=== PATIENT | male | born 1980 | race Caucasian/White ===

== ENCOUNTER 2020-03-30 07:30 | Outpatient (CLI) | payer OTHER, SELFPAY ==
[2020-03-30 08:16] LABS: Hematocrit 49.2 % (42.0-52.0); Hemoglobin 16.3 g/dL (14.0-18.0); Mean Corpuscular HGB Conc 33.1 g/dl (32-36); Mean Corpuscular Hemoglobin 30.3 pg (26-34); Mean Corpuscular Volume 91.4 fl (80-100); Mean Platelet Volume 9.9 fl (7.4-10.4); Platelet Count Result 171 k/mm3 (150-375); Red Blood Count 5.38 M/mm3 (4.6-6.20); Red Cell Distribution Width 12.8 % (11.5-14.5); White Blood Count 7.3 K/mm3 (4.5-10.0)
[2020-03-30 08:29] LABS: Alanine Aminotransferase 27 U/L (4-50); Albumin Level 4.1 g/dL (3.5-5.1); Alkaline Phosphatase 53 U/L (38-126); Aspartate Amino Transferase 21 U/L (17-59); Blood Urea Nitrogen 20 mg/dL (9-20); Calcium 8.7 mg/dL (8.4-10.2); Carbon Dioxide 23 mmol/L (22-30); Chloride 106 mmol/L (98-107); Estimated Glomerular Filt Rate > 60; Glucose 109 mg/dL (75-110); Potassium 4.1 mmol/L (3.4-5.0); Sodium 136 mmol/L (137-145)
[2020-04-01 12:08] LABS: Prostate Specific Antigen 0.5 ng/mL (< OR = 4.0)
[2020-04-03 12:33] LABS: Testosterone Free 118.3 pg/mL (35.0-155.0); Testosterone Total 684 ng/dL (250-1100)
== END 2020-03-30 07:31 | disposition home or self-care (01) ==
DX: E29.1 Testicular hypofunction (principal)
CPT/HCPCS: 36415; 80053; 84153; 84402; 84403; 85027; G0103

== ENCOUNTER 2020-10-05 07:27 | Outpatient (CLI) | payer OTHER, SELFPAY ==
[2020-10-05 07:46] LABS: Hematocrit 48.9 % (42.0-52.0); Hemoglobin 16.7 g/dL (14.0-18.0); Mean Corpuscular HGB Conc 34.2 g/dl (32-36); Mean Corpuscular Hemoglobin 30.8 pg (26-34); Mean Corpuscular Volume 90.1 fl (80-100); Platelet Count Result 179 k/mm3 (150-375); Red Blood Count 5.43 M/mm3 (4.6-6.20); Red Cell Distribution Width 13.2 % (11.5-14.5); White Blood Count 7.3 K/mm3 (4.5-10.0)
[2020-10-05 08:02] LABS: Alanine Aminotransferase 45 U/L (4-50); Alkaline Phosphatase 54 U/L (38-126); Anion Gap 3 mmol/L (8-16); Aspartate Amino Transferase 34 U/L (17-59); Bilirubin,Total 1.3 mg/dL (0.2-1.3); Blood Urea Nitrogen 19 mg/dL (9-20); Calcium 9.1 mg/dL (8.4-10.2); Carbon Dioxide 32 mmol/L (22-30); Chloride 104 mmol/L (98-107); Cholesterol 199 mg/dL (0-200); Estimated Glomerular Filt Rate > 60; Glucose 105 mg/dL (75-110); HDL Direct 38 mg/dL; Potassium 4.5 mmol/L (3.4-5.0); Sodium 139 mmol/L (137-145); Triglycerides 180 mg/dL (<150)
[2020-10-05 08:13] LABS: LDL Cholesterol Direct 138 mg/dL
[2020-10-05 08:32] LABS: Prostate Specific Antigen 0.5 ng/mL (< OR = 4.0)
[2020-10-08 12:42] LABS: Testosterone Free 68.8 pg/mL (35.0-155.0); Testosterone Total 588 ng/dL (250-1100)
== END 2020-10-05 07:28 | disposition home or self-care (01) ==
DX: Z00.00 Encounter for general adult medical examination without abnormal findings (principal)
CPT/HCPCS: 36415; 80053; 80061; 84153; 84402; 84403; 85027

== ENCOUNTER 2021-03-30 07:58 | Outpatient (CLI) | payer OTHER, SELFPAY ==
[2021-03-30 09:01] LABS: Alanine Aminotransferase 28 U/L (4-50); Albumin Level 4.2 g/dL (3.5-5.1); Alkaline Phosphatase 57 U/L (38-126); Anion Gap 8 mmol/L (8-16); Aspartate Amino Transferase 26 U/L (17-59); Bilirubin,Total 1.4 mg/dL (0.2-1.3); Blood Urea Nitrogen 19 mg/dL (9-20); Calcium 9.3 mg/dL (8.4-10.2); Carbon Dioxide 26 mmol/L (22-30); Chloride 103 mmol/L (98-107); Cholesterol 191 mg/dL (0-200); Estimated Glomerular Filt Rate > 60; Glucose 115 mg/dL (75-110); HDL Direct 39 mg/dL; Potassium 4.6 mmol/L (3.4-5.0); Sodium 137 mmol/L (137-145); Triglycerides 240 mg/dL (<150)
[2021-03-30 09:11] LABS: LDL Cholesterol Direct 97 mg/dL
[2021-04-03 22:40] LABS: Testosterone Free 19.6 pg/mL (35.0-155.0); Testosterone Total 188 ng/dL (250-1100)
== END 2021-03-30 07:59 | disposition home or self-care (01) ==
DX: E78.2 Mixed hyperlipidemia (principal)
CPT/HCPCS: 36415; 80053; 80061; 84402; 84403

== ENCOUNTER 2021-10-03 07:07 | Outpatient (CLI) | payer OTHER, SELFPAY ==
[2021-10-03 07:36] LABS: Hematocrit 47.4 % (42.0-52.0); Hemoglobin 15.6 g/dL (14.0-18.0); Mean Corpuscular HGB Conc 32.9 g/dl (32-36); Mean Corpuscular Hemoglobin 30.6 pg (26-34); Mean Corpuscular Volume 93.1 fl (80-100); Platelet Count Result 148 k/mm3 (150-375); Red Blood Count 5.09 M/mm3 (4.6-6.20); Red Cell Distribution Width 13.2 % (11.5-14.5); White Blood Count 4.7 K/mm3 (4.5-10.0)
[2021-10-03 07:59] LABS: LDL Cholesterol Direct 110 mg/dL
[2021-10-03 08:03] LABS: Alanine Aminotransferase 27 U/L (4-50); Albumin Level 4.1 g/dL (3.5-5.1); Alkaline Phosphatase 46 U/L (38-126); Anion Gap 7 mmol/L (8-16); Aspartate Amino Transferase 24 U/L (17-59); Blood Urea Nitrogen 12 mg/dL (9-20); Calcium 8.7 mg/dL (8.4-10.2); Carbon Dioxide 27 mmol/L (22-30); Chloride 105 mmol/L (98-107); Cholesterol 163 mg/dL (0-200); Estimated Glomerular Filt Rate > 60; Glucose 101 mg/dL (65-110); HDL Direct 30 mg/dL; Potassium 4.5 mmol/L (3.4-5.0); Sodium 139 mmol/L (137-145); Triglycerides 146 mg/dL (<150)
[2021-10-10 03:17] LABS: Testosterone Free 136.3 pg/mL (35.0-155.0); Testosterone Total 915 ng/dL (250-1100)
== END 2021-10-03 07:08 | disposition home or self-care (01) ==
LOC: ANHLAB 07:12
DX: Z00.00 Encounter for general adult medical examination without abnormal findings (principal); E29.1 Testicular hypofunction
CPT/HCPCS: 36415; 80053; 80061; 84402; 84403; 85027

== ENCOUNTER 2022-05-03 11:31 | Emergency (ER) | payer OTHER, SELFPAY ==
[2022-05-03] VITALS (21 sets, daily range): BP systolic 129–147; BP diastolic 70–81; PULSE 54–71; RESP 11–22; O2SAT 96–100
--- NOTE | ~2022-05-03 | XR_ITS ---
XR chest 2V DATE: 05/03/2022 12:25 INDICATION: Chest pain TECHNIQUE: PA and lateral views COMPARISON: None FINDINGS: Normal heart size. No hilar or mediastinal enlargement. No pulmonary infiltrate or consolid ation, pleural effusion or pulmonary vascular congestion or pneumothorax. Mild levoscoliosis of the upper thoracic spine. IMPRESSION: No active cardiopulmonary disease Reviewed, dictated and finalized at location B.
--- NOTE | 2022-05-03 11:34 | ECG_ITS ---
Measurements Intervals [place] Rate: 62 P: 21 MO: 166 QRS: 41 QRSD: 98 T: 25 QT: 370 QTc: 379 Interpretive Statements SINUS RHYTHM NORMAL EKG NO PREVIOUS ECG AVAILABLE FOR COMPARISON Electronically Signed On 05-03-2022 18:31:33 CDT by Gertrudis Gonzalez M.D.
[2022-05-03 11:55] LABS: Basophils Absolute Auto 0.1 K/mm3 (0.0-0.1); Basophils Percent Auto 0.6 % (0.2-1.2); Eosinophils Absolute Auto 0.1 K/mm3 (0-0.3); Eosinophils Percent Auto 1.3 % (0-4.4); Hematocrit 50.7 % (42.0-52.0); Hemoglobin 16.5 g/dL (14.0-18.0); Immature Granulocyte Absolute 0.02 K/mm3 (0.00-0.031); Immature Granulocyte Percent A 0.3 % (0-0.5); Lymphocytes Absolute Auto 2.47 K/mm3 (0.9-3.2); Lymphocytes Percent Auto 31.1 % (18.3-44.2); Mean Corpuscular HGB Conc 32.5 g/dl (32-36); Mean Corpuscular Hemoglobin 29.8 pg (26-34); Mean Corpuscular Volume 91.7 fl (80-100); Mean Platelet Volume 10.3 fl (7.4-10.4); Monocytes Absolute Auto 0.7 K/mm3 (0.1-0.6); Monocytes Percent Auto 9.3 % (2.6-8.5); Neutrophils Absolute Auto 4.6 K/mm3 (1.3-6.7); Neutrophils Percent Auto 57.4 % (45.5-73.1); Platelet Count Result 170 k/mm3 (150-375); Red Blood Count 5.53 M/mm3 (4.6-6.20); Red Cell Distribution Width 13.5 % (11.5-14.5); White Blood Count 7.9 K/mm3 (4.5-10.0)
[2022-05-03 12:11] LABS: Alanine Aminotransferase 23 U/L (6-50); Albumin Level 4.5 g/dL (3.5-5.1); Alkaline Phosphatase 49 U/L (38-126); Anion Gap 9 mmol/L (8-16); Aspartate Amino Transferase 30 U/L (17-59); Bilirubin,Total 1.7 mg/dL (0.2-1.3); Blood Urea Nitrogen 16 mg/dL (9-20); Calcium 9.6 mg/dL (8.4-10.2); Carbon Dioxide 26 mmol/L (22-30); Chloride 101 mmol/L (98-107); Estimated Glomerular Filt Rate > 60; Glucose 88 mg/dL (65-110); Lipase 108 U/L (23-300); Potassium 4.5 mmol/L (3.4-5.0); Sodium 136 mmol/L (137-145)
[2022-05-03 12:19] LABS: Troponin I 0.013 ng/mL (0.000-0.034)
[2022-05-03 12:42] LABS: INR 1.1; Partial Thromboplastin Time 26.3 SECONDS (22.3-36.8); Prothrombin Time 13.4 Seconds (11.1-14.7)
[2022-05-03] MEDS: ONDANSETRON INJ 4 MG/2 ML VIAL 8 MG IV PUSH (13:32)
[2022-05-03] MEDS: FAMOTIDINE 20 MG/2 ML VIAL IV PUSH (13:33)
[2022-05-03] MEDS: PANTOPRAZOLE SODIUM IV 40 MG VIAL IV PUSH (13:33)
[2022-05-03 15:35] LABS: Troponin I < 0.012 ng/mL (0.000-0.034)
--- NOTE | 2022-05-03 17:25 | ED.GENADULT ---
HPI - General Adult General Chief complaint: Chest Pain Stated complaint: chest pain, throwing up blood Time Seen by Provider: 05/03/22 12:08 History of Present Illness HPI narrative: This is a 41-year-old male presenting the ED after an episode of chest pain and vomiting blood. Patient was at a bar last night had several alcoholic beverages. He was driving home he felt queasy and then have an episode of bright red hematemesis. Since then he has not had any further episodes. During the vomiting patient describing a heavy chest pain over the center of his chest that is nonradiating, 2 out 10 intensity and sudden onset. He is relating this when he has heartburn past. They were no exacerbating or alleviating factors. Patient has noted that he has had loose bowel movements for last day but no red blood in the bowel movements or symptoms of melena. Patient had a bowel movement earlier today without difficulty. Patient uses 750 mg of Aleve every morning. He smokes cigarettes and drinks daily. Related Data Home Medications Medication Instructions Recorded Confirmed eluxadoline 100 mg tablet (Viberzi) mg 05/03/22 05/03/22 hydrocodone 10 mg-acetaminophen tablet 05/03/22 325 mg tablet montelukast 10 mg tablet mg 05/03/22 trazodone 50 mg tablet mg 05/03/22 Allergies Allergy/AdvReac Type Severity Reaction Status Date / Time No Known Allergies Allergy Verified 05/03/22 11:49 Review of Systems Review of Systems: CONSTITUTIONAL: Denies night sweats. EYES: No eye pain ENT: Denies rhinorrhea CARDIOVASCULAR: Denies palpitations RESPIRATORY: Denies hemoptysis GASTROINTESTINAL: Admits hematemesis GENITOURINARY: Denies hematuria. SKIN: Denies rash MUSCULOSKELETAL: Denies myalgia. NEUROLOGIC: Denies weakness. PSYCHIATRIC: Denies delusions PMFSH Past Medical History Medical History Anal fissure Arthritis Asthma Chronic pain Surgical History Surgical History H/O hemorrhoidectomy Social History Social History (Updated 05/03/22 @ 17:28 by Klaus Alvarez MD) Social History: Patient endorses daily alcohol and tobacco use. Exam Narrative: APPEARANCE: No apparent distress. Head atraumatic. EYES: PERRLA/EOMI, NOSE: Normal no drainage NECK: Supple, Trachea midline RESPIRATORY: CTAB, No increased work of breathing. CARDIOVASCULAR: S1S2 appreciated ABDOMINAL: Mild tenderness to palpation in the epigastric area, no guarding or rebound. MUSCULOSKELETAl: No obvious deformities NEURO: Alert. Moving 4/4 extremities SKIN:: Warm, dry. Normal color PSYCHIATRIC: Normal affect Course Vital Signs Vital signs: Vital Signs Pulse Rate 69 05/03/22 11:48 Pulse Rate 67 05/03/22 16:15 Respiratory Rate 17 05/03/22 16:15 Blood Pressure 129/76 05/03/22 16:03 Pulse Oximetry 98 05/03/22 16:03 Medical Decision Making MDM Narrative Medical decision making narrative: Patient presents to ED with a chief complaint of chest pain and vomiting blood. Patient had a single episode of vomiting blood yesterday. He has multiple factors for peptic ulcer disease and gastritis including daily NSAID use, heavy alcohol tobacco use. Lab work was unremarkable the patient's hemoglobin is stable. Patient has not had any episodes here in the emergency department. I believe he can safely be discharged follow up with the GI physician on an outpatient basis. His Aleve has been switched to meloxicam. He has been instructed to decrease his alcohol and tobacco use. He has been started on a 6 week course of Pepcid. Vital Signs Vital Signs: Vital Signs Pulse Rate 69 05/03/22 11:48 Pulse Rate 67 05/03/22 16:15 Respiratory Rate 17 05/03/22 16:15 Blood Pressure 129/76 05/03/22 16:03 Pulse Oximetry 98 05/03/22 16:03 Lab Data Result diagrams: 05/03/22 11:47
== END 2022-05-03 16:29 | disposition home or self-care (01) ==
PROVIDERS: Emergency Medicine; Emergency Provider Emergency Medicine
DX: K92.0 Hematemesis (principal); K29.70 Gastritis, unspecified, without bleeding; M19.90 Unspecified osteoarthritis, unspecified site; J45.909 Unspecified asthma, uncomplicated
CPT/HCPCS: 36415; 71046; 80053; 83690; 84484; 85025; 85610; 85730; 93005; 96374; 96375; 99285; C9113; J2405

== ENCOUNTER 2022-05-19 01:41 | Day surgery (SDC) | payer OTHER, SELFPAY ==
[2022-05-11 12:32] VITALS: BMI 34.0
--- NOTE | 2022-05-18 16:19 | PM.HPGS ---
History of Present Illness History of Present Illness Consent: Risks, benefits, and alternatives have been discussed and questions answered. Patient agrees to proceed with procedure. Chief complaint: hx colon polyps, neoplasm screening, hematemesis Narrative: Memo Sullivan is a 41 year old male Who had developed hematemesis about 10 days ago. He has had a 3 or 4 beers and then began vomiting. He vomited about 6 times in beginning with the 2nd episode he was bringing up bright red blood. He also had been having epigastric pain that was radiating up into his chest. He recalls having something like this several months ago as well. He does take NSAIDs, Aleve, daily. He has history of having had polyps removed he had a colonoscopy 9 years ago. He was advised at that time have repeat exam in 5 years. Review of Systems Review of Systems: All systems reviewed & are unremarkable except as noted in HPI and below PMFSH Past Medical History Medical History Anal fissure Arthritis Asthma Chronic pain Colon polyps Epigastric pain Hematemesis Irritable bowel syndrome with diarrhea Nausea and vomiting Surgical History Surgical History H/O hemorrhoidectomy Social History Social History Social History: Patient endorses daily alcohol and tobacco use. Smoking packs per day: 1.5 Smoking cigarettes per day: 30.0 Years smoked: 35 Smoking pack-years: 52.50 Smoking status: Current every day smoker Tobacco type: cigarettes Alcohol intake: current Drinks per week: 10 Alcohol use details: BEER Substance use: never Substance use type: does not use Living arrangements: with family Spiritual care concerns: No Meds Home Medications and Allergies Home Medications Medication Instructions Recorded Confirmed Type eluxadoline 100 mg tablet (Viberzi) 100 mg PO DAILY 05/03/22 05/19/22 History hydrocodone 10 mg-acetaminophen 1 tablet PO DAILY 05/03/22 05/19/22 History 325 mg tablet montelukast 10 mg tablet 10 mg PO DAILY 05/03/22 05/19/22 History trazodone 50 mg tablet 50 mg PO DAILY 05/03/22 05/19/22 History omeprazole 40 mg capsule,delayed See Rx Instructions .Route 05/09/22 05/19/22 Rx release .COMPLEX #90 caps testosterone cypionate 200 mg/mL 200 mg IM MONTHLY 05/11/22 05/19/22 History intramuscular oil Allergies Allergy/AdvReac Type Severity Reaction Status Date / Time No Known Allergies Allergy Verified 05/19/22 12:22 Exam Const: General: alert Orientation/consciousness: patient oriented x3 Resp: Auscultation: clear to auscultation bilaterally Cardio: Rhythm: regular rhythm GI: GI Palp: Yes Soft to palpation and No Tenderness to palpation present (GI) Neuro: General: patient oriented x3 Assessment and Plan Assessment and plan (1) Hematemesis: Code(s): K92.0 - Hematemesis Status: Acute Assessment and Plan: EGD with possible biopsy or dilatation or cautery. (2) Colon polyps: Code(s): K63.5 - Polyp of colon Status: Acute Assessment and Plan: Screening Colonoscopy with possible biopsy or polypectomy or cautery or injection of substances.
[2022-05-19 12:32] VITALS: BP 129/82; PULSE 78; RESP 17; TEMP 36.5; O2SAT 98; BMI 32.8
[2022-05-19] MEDS: LACTATED RINGERS 1,000 ML 150 ML IV CONT (12:36)
--- NOTE | 2022-05-19 12:56 | WPDANESEPPF ---
Anes - Initial Pre Proc Eval Procedure: Operation Date: 05/19/22 13:30 Proposed Procedures p Esophagogastroduodenoscopy & Screening Colonoscopy - Theodore Mantilla MD Date/Time: 05/19/22 12:56 Surgeon: Theodore Mantilla MD Pre Op Diagnosis: hx colon polyps, neoplasm screening, hematemesis Patient Data Age: 41 Gender: M Height: 1.88 m Weight: 116 kg Last Vital Signs Temp 97.7 F 05/19/22 12:32 Pulse 78 05/19/22 12:32 Resp 17 05/19/22 12:32 BP 129/82 05/19/22 12:32 Pulse Ox 98 05/19/22 12:32 O2 Del Method Room Air 05/19/22 12:32 Allergies Allergy/AdvReac Type Severity Reaction Status Date / Time No Known Allergies Allergy Verified 05/19/22 12:22 Home Medications Medication Instructions Recorded Confirmed Type eluxadoline 100 mg tablet (Viberzi) 100 mg PO DAILY 05/03/22 05/19/22 History hydrocodone 10 mg-acetaminophen 1 tablet PO DAILY 05/03/22 05/19/22 History 325 mg tablet montelukast 10 mg tablet 10 mg PO DAILY 05/03/22 05/19/22 History trazodone 50 mg tablet 50 mg PO DAILY 05/03/22 05/19/22 History omeprazole 40 mg capsule,delayed See Rx Instructions .Route 05/09/22 05/19/22 Rx release .COMPLEX #90 caps testosterone cypionate 200 mg/mL 200 mg IM MONTHLY 05/11/22 05/19/22 History intramuscular oil Patient hx anesthesia problems: none Family hx anesthesia problems: none Results Review: All pre-operative results and documents have been reviewed as part of the pre-operative evaluation. [facility] Past Medical History Medical History (Updated 05/09/22 @ 08:58 by MARIA ANTONIA Curry) Anal fissure Arthritis Asthma Chronic pain Colon polyps Epigastric pain Hematemesis Irritable bowel syndrome with diarrhea Nausea and vomiting Surgical History Surgical History H/O hemorrhoidectomy Social History Social History Social History: Patient endorses daily alcohol and tobacco use. Smoking packs per day: 1.5 Smoking cigarettes per day: 30.0 Years smoked: 35 Smoking pack-years: 52.50 Smoking status: Current every day smoker Tobacco type: cigarettes Alcohol intake: current Drinks per week: 10 Alcohol use details: BEER Substance use: never Substance use type: does not use Living arrangements: with family Spiritual care concerns: No Anes - Eval Final PreProcedure Day of Procedure 05/19/22 12:56 Patient weight: obese Heart: regular rate and rhythm Lungs: clear to auscultation Airway: Mallampati scale class II Neurological: alert and oriented Last oral intake: >/= 8 hours ASA classification: II Emergent: no Anesthetic plan: proceed Anesthesia type and monitoring: general GIVS and standard monitoring Results Review: All pre-operative results and documents have been reviewed as part of the pre-operative evaluation. Informed Consent: The patient's anesthetic plan and its attendant risks and benefits were discussed with the patient/family/POA. Questions were solicited and answers provided to the satisfaction of the patient/family/POA.
--- NOTE | 2022-05-19 13:55 | SUR.OPER ---
EGD END: 1347 COLONOSCOPY START: 1354
[2022-05-19 14:05] VITALS: BP 121/74; PULSE 61; RESP 19; O2SAT 100
[2022-05-19 14:15] VITALS: BP 127/72; PULSE 61; RESP 19; O2SAT 100
[2022-05-19 14:25] VITALS: BP 125/75; PULSE 56; RESP 14; O2SAT 100
== END 2022-05-19 14:26 | disposition home or self-care (01) ==
PROVIDERS: Visit Provider Internal Medicine Gastroenterology
PROC: 0DJ08ZZ Inspection of Upper Intestinal Tract, Via Natural or Artificial Opening Endoscopic (ICD-10-PCS; CPT 43235; principal; 2022-05-19 13:30)
DX: Z12.11 Encounter for screening for malignant neoplasm of colon (principal); Z86.010 Personal history of colon polyps; K57.30 Diverticulosis of large intestine without perforation or abscess without bleeding; K92.0 Hematemesis; K29.60 Other gastritis without bleeding; K21.00 Gastro-esophageal reflux disease with esophagitis, without bleeding; M19.90 Unspecified osteoarthritis, unspecified site; J45.909 Unspecified asthma, uncomplicated; K58.0 Irritable bowel syndrome with diarrhea; F17.210 Nicotine dependence, cigarettes, uncomplicated; E66.9 Obesity, unspecified; Z68.32 Body mass index [BMI] 32.0-32.9, adult
CPT/HCPCS: 45378; 43239; 87081; 88305; J2704; J7120

== ENCOUNTER 2022-06-12 10:26 | Outpatient (CLI) | payer OTHER, SELFPAY ==
--- NOTE | ~2022-06-12 | US_ITS ---
US abdomen complete EXAMINATION: US Abdomen Complete INDICATION: Epigastric pain PROCEDURE: Realtime High Resolution abdomen ultrasound. COMPARISON: No prior studies for comparison FINDINGS: Gallbladder within normal limits. No gallstones, pericholecystic fluid, gallbladder wall t hickening or biliary dilatation. Common bile duct measures 4 mm. Liver echotexture is increased, consistent with fatty infiltration.. Pancreas within normal limits. Pancreatic tail is obscured by bowel gas. Spleen is enlarged measuring 13.1 cm. Renal echotexture i s within normal limits bilaterally without hydronephrosis, contour deforming mass or renal stone. Rig ht kidney measures cm. Left kidney measures cm. Visualized aspects of the aorta and IVC are within normal limits. Portal vein is patent. No sonograph ic Simental's sign indicated by the technologist. IMPRESSION: 1: Hepatic steatosis. 2: Splenomegaly. Reviewed, dictated and finalized at location A.
== END 2022-06-12 10:27 | disposition home or self-care (01) ==
PROVIDERS: Visit Provider Internal Medicine Gastroenterology
DX: R10.13 Epigastric pain (principal); K76.0 Fatty (change of) liver, not elsewhere classified; R16.1 Splenomegaly, not elsewhere classified
CPT/HCPCS: 76700

== ENCOUNTER 2022-10-10 07:22 | Outpatient (CLI) | payer OTHER, SELFPAY ==
[2022-10-10 08:00] LABS: Alanine Aminotransferase 31 U/L (6-50); Albumin Level 4.2 g/dL (3.5-5.1); Alkaline Phosphatase 47 U/L (38-126); Anion Gap 4 mmol/L (8-16); Aspartate Amino Transferase 24 U/L (17-59); Bilirubin,Total 1.2 mg/dL (0.2-1.3); Blood Urea Nitrogen 17 mg/dL (9-20); Calcium 8.7 mg/dL (8.4-10.2); Carbon Dioxide 30 mmol/L (22-30); Chloride 101 mmol/L (98-107); Cholesterol 202 mg/dL (0-200); Estimated Glomerular Filt Rate > 60; Glucose 98 mg/dL (65-110); HDL Direct 40 mg/dL; Hematocrit 49.1 % (42.0-52.0); Hemoglobin 16.2 g/dL (14.0-18.0); Mean Corpuscular Hemoglobin 30.5 pg (26-34); Mean Corpuscular Volume 92.3 fl (80-100); Platelet Count Result 159 k/mm3 (150-375); Potassium 4.4 mmol/L (3.4-5.0); Red Blood Count 5.32 M/mm3 (4.6-6.20); Red Cell Distribution Width 13.2 % (11.5-14.5); Sodium 135 mmol/L (137-145); Triglycerides 178 mg/dL (<150)
[2022-10-10 08:11] LABS: LDL Cholesterol Direct 116 mg/dL
[2022-10-16 10:33] LABS: Testosterone Free 46.9 pg/mL (35.0-155.0); Testosterone Total 419 ng/dL (250-1100)
== END 2022-10-10 07:23 | disposition home or self-care (01) ==
DX: Z00.00 Encounter for general adult medical examination without abnormal findings (principal); E29.1 Testicular hypofunction
CPT/HCPCS: 36415; 80053; 80061; 84402; 84403; 85027

== ENCOUNTER 2023-10-03 07:23 | Outpatient (CLI) | payer OTHER, SELFPAY ==
[2023-10-03 07:56] LABS: Hematocrit 51.3 % (42.0-52.0); Hemoglobin 16.8 g/dL (14.0-18.0); Mean Corpuscular HGB Conc 32.7 g/dl (32-36); Mean Corpuscular Hemoglobin 29.9 pg (26-34); Mean Corpuscular Volume 91.3 fl (80-100); Mean Platelet Volume 9.8 fl (7.4-10.4); Platelet Count Result 161 k/mm3 (150-375); Red Blood Count 5.62 M/mm3 (4.6-6.20); Red Cell Distribution Width 12.6 % (11.5-14.5); White Blood Count 5.3 K/mm3 (4.5-10.0)
[2023-10-03 08:13] LABS: Alanine Aminotransferase 24 U/L (6-50); Albumin Level 4.2 g/dL (3.5-5.1); Alkaline Phosphatase 54 U/L (38-126); Anion Gap 6 mmol/L (8-16); Aspartate Amino Transferase 25 U/L (17-59); Bilirubin,Total 2.1 mg/dL (0.2-1.3); Blood Urea Nitrogen 18 mg/dL (9-20); Carbon Dioxide 28 mmol/L (22-30); Chloride 104 mmol/L (98-107); Cholesterol 205 mg/dL (0-200); Estimated Glomerular Filt Rate > 60; Glucose 101 mg/dL (65-110); HDL Direct 37 mg/dL; Potassium 4.5 mmol/L (3.4-5.0); Sodium 138 mmol/L (137-145); Triglycerides 157 mg/dL (<150)
[2023-10-03 08:24] LABS: LDL Cholesterol Direct 129 mg/dL
[2023-10-07 13:34] LABS: Testosterone Free 37.9 pg/mL (35.0-155.0); Testosterone Total 308 ng/dL (250-1100)
== END 2023-10-03 07:24 | disposition home or self-care (01) ==
DX: Z00.00 Encounter for general adult medical examination without abnormal findings (principal); E29.1 Testicular hypofunction
CPT/HCPCS: 36415; 80053; 80061; 84402; 84403; 85027

== ENCOUNTER 2024-03-15 08:22 | Outpatient (CLI) | payer OTHER, SELFPAY ==
[2024-03-15 09:09] LABS: Hematocrit 50.8 % (42.0-52.0); Hemoglobin 16.5 g/dL (14.0-18.0); Mean Corpuscular HGB Conc 32.5 g/dl (32-36); Mean Corpuscular Hemoglobin 30.3 pg (26-34); Mean Corpuscular Volume 93.2 fl (80-100); Mean Platelet Volume 10.7 fl (7.4-10.4); Platelet Count Result 152 k/mm3 (150-375); Red Blood Count 5.45 M/mm3 (4.6-6.20); Red Cell Distribution Width 13.2 % (11.5-14.5); White Blood Count 5.6 K/mm3 (4.5-10.0)
[2024-03-20 16:29] LABS: Testosterone Free 108.6 pg/mL (35.0-155.0); Testosterone Total 635 ng/dL (250-1100)
== END 2024-03-15 08:23 | disposition home or self-care (01) ==
DX: E29.1 Testicular hypofunction (principal)
CPT/HCPCS: 36415; 84402; 84403; 85027

== ENCOUNTER 2024-11-04 06:39 | Outpatient (CLI) | payer OTHER, SELFPAY ==
--- OUTSIDE RECORDS SUMMARY | 2024-11-04 06:45 | XMS_ITS | Clinical Summary ---
Author Organization [facility] Address [facility] [place] [address] Care Team Providers Care Claims Support Specialist Name Role Phone Unavailable Primary Care Provider Unavailabl e Social History Tobacco Use Types Packs/Day Years Used Date Smoking Tobacco: Never Assessed Sex and Gender Information Value Date Recorded Sex Assigned at Not on file Legal Sex Male 4:16 PM CDT Gender Identity Not on file Sexual Orientation Not on file Plan of Treatment Health Maintenance Due Date Last Done Comments Colorectal Cancer Screening Colonoscopy (10 Years) 1979 Annual Physical 1982 Hepatitis C 1997 DTaP, Tdap and Td Vaccines ( 1 - Tdap) 1998 Hepatitis B Vaccines (1 of 3 - 19+ 3-dose series) 1998 COVID-19 Vaccine (2023-2 5 season) 2024 Influenza Adult (#1) 2024 07/25/2020, 07/23/2019, 01/22/2018 HPV Vaccines Aged Out No longer eligi ble based on patient's age to complete this topic Meningococcal B Vaccine Aged Out No l onger eligible based on patient's age to complete this topic Meningococcal Vaccine Aged Out No gini jarod eligible based on patient's age to complete this topic Pneumococcal Vaccine: Pediatrics (0 to 5 Years) and At-Risk Patients (6 to 64 Years) Aged Out No longer eligible b ased on patient's age to complete this topic RSV Immunizations Under 20 Months Aged Out No longer eligible b ased on patient's age to complete this topic
--- OUTSIDE RECORDS SUMMARY | 2024-11-04 06:45 | XMS_ITS | Encounter Summary ---
Author Organization [facility] Care Team Providers Care Inspector Line Name Role Phone Davis Lopez MD Primary Care Provi shanika Encounter Details Date Type Department Care Team (Latest Contact Info) Description 02/28/2016 Orders Only [facility]INCON[facility] ProviderAyse MD [address] [place] [id number] Social History Tobacco Use Types Packs/Day Years Used Date Smoking Tobacco: Never Assessed Sex and Gender Information Value Date Recorded Sex Assigned at Not on file Legal Sex Male 7:15 PM NURSE Gender Identity Male 02/02/2021 7:40 PM CDT Sexual Orientation Straight 02/02/2021 7: 40 PM CDT documented as of this encounter Plan of Treatment Not on file documented as of this encounter Procedures Procedure Name Priority Date/Time Associated Diagnosis Comments SCAN - LABS 03/02/2016 12:00 AM CDT documented in this encounter Results * SCAN - LABS (03/02/2016 12:00 AM CDT) Narrative 03/02/2016 12:00 AM CDT Ordered by an unspecified provider. us Historical Provider Final Res ult documented in this encounter Visit Diagnoses Not on filedocumented in this encounter Additional Health Concerns Infection Onset Date Last Indicated Resolved Time COVID: Suspected 10/06/2021 10/06/2021 10/16/2021 3:05 AM NURSE documented as of this encounter Care Teams Inspector Line Relationship Specialty Start Date End Date Davis Lopez MD [address] [place] [address] PCP - General Family Medicine 12/14/18 documented as of this encounter
--- OUTSIDE RECORDS SUMMARY | 2024-11-04 06:45 | XMS_ITS | Referral Summary ---
Author Organization [facility] [place] [address] Address [address] [place] [address] Care Team Providers Care Casing Mixer Name Role Phone Davis Lopez MD Primary Care Provi shanika Allergies No known active allergies Medications multivitamin tabletIndicatio ns:Vitamin Deficiency Prevention Take 1 tablet by mouth Active syringe with needle 3 mL 21 gauge x 1 1/2 syringe Use for IM testosterone injection as directed 100 Syringe 2 0 Active safety needles (BD SafetyGlide Needle) 21 gauge x 1 1/2 needle Use for IM testosterone injection as directed 100 each 2 0 Active BD Luer-Nury Syringe 5 mL 22 x 1 syringe Use as directed 100 each 11 1 Active BD Regular Bevel [place] 21 gauge x 1 1/2 needle Use as directed 100 each 11 1 Active albuterol HFA (PROVENTIL HFA,VENTOLIN HFA,PROAIR HFA) 90 mcg/actuation inhaler 2 Active azelastine (ASTELIN) 137 mcg (0.1 %) nasal spray Administer 2 sprays into each nostril 2 (two) times a day 2 Active naproxen (ALEVE) 220 mg tablet Take by mouth 2 (two) times a day with meals Active omeprazole 20 mg tablet,delayed release (DR/EC) Take by mouth Active traZODone (DESYREL) 50 mg tablet Take 1 tablet (50 mg total) by mouth nightly 90 tablet 3 4 Active mupirocin (BACTROBAN) 2 % ointment Apply topically 3 (three) times a day 22 g 3 4 Active PARoxetine (PAXIL) 10 mg tablet TAKE 1 TABLET(10 MG) BY MOUTH EVERY MORNING 90 tablet 3 4 Active montelukast (SINGULAIR) 10 mg tablet TAKE 1 TABLET(10 MG) BY MOUTH EVERY NIGHT 90 tablet 3 4 Active meloxicam (MOBIC) 15 mg tablet TAKE 1 TABLET(15 MG) BY MOUTH DAILY 90 tablet 3 4 Active testosterone cypionate (DEPO-TESTOTERO NE) 200 mg/mL injection INJECT 1ML INTO THE MUSCLE EVERY 14 DAYS DIRECTED 6 mL 3 4 Active Active Problems Problem Noted Date Diagnosed Date Precordial pain 01/11/2022 Diastolic dysfunction 01/11/2022 Abnormal EKG 11/09/2021 Mixed bipolar disorder 10/10/2019 Mixed hyperlipidemia 03/15/2018 Hypogonadism in male 03/15/2018 Cigarette nicotine dependence without complicati on 01/22/2018 Chronic seasonal allergic rhinitis 07/17/2017 Herniated lumbar intervertebral disc 01/11/2017 Resolved Problems Problem Noted Date Diagnosed Date Resolved Date Class 2 obesity due to exces s calories without serious comorbidity with body mass index (BMI) of 37.0 to 37.9 in adult 03/15/201809/2022 Assessment & Plan (12/22/2019 8:06 AM CDT): BMI Follow-up includes: education provided. Immunizations Name Administration Dates Next Due Influenza, Quadrivalent, Spl it, Preservative Free, Intramuscular 07/23/2019 Influenza, Trivalent, Preser vative Free, Intramuscular 01/22/2018 Influenza, Unspecified 11/07/2023(Deferr ed: Patient Refused),06/25/2023(Deferred: Patient Refused),10/25/2022(Deferred: Patient Refused),10/25/2022(Deferred: Patient Refused),08/11/2021(Deferred: Patient Refused),07/25/2020 Social History Tobacco Use Types Packs/Day Years Used Date Smoking Tobacco: Every Day Cigarettes 1.3 34.1 Started: 1990 Smokeless Tobacco: Never Tobacco Cessation:Ready to Q uit: Yes; Counseling Given: Yes Alcohol Use Standard Drinks/Week Comments Yes 0 (1 standard drink = 0.6 oz pur e alcohol) occasional, 2-3 times monthly PHQ-2 Answer Date Recorded PHQ-2 Total Score (If total score is 3 or more points, staff should administer the PHQ-9) 2 11/07/2023 Personal Safety Answer Date Recorded Getting School Help Needed Not on file 09/05 Sex and Gender Information Value Date Recorded Sex Assigned at Not on file Legal Sex Male 7:15 PM SPEEDOMETER INSPECTOR Gender Identity Male 02/02/2021 7:40 PM CDT Sexual Orientation Straight 02/02/2021 7: 40 PM CDT Last Filed Vital Signs Vital Sign Reading Time Taken Comments Blood Pressure 120/72 11/07/2023 7:55 AM SPEEDOMETER INSPECTOR Pulse 68 11/07/2023 7:55 AM SPEEDOMETER INSPECTOR Temperature 36.7 C (98.1 F) 10/31/2021 3:06 PM SPEEDOMETER INSPECTOR Respiratory Rate 18 11/07/2023 7:55 AM SPEEDOMETER INSPECTOR Oxygen Saturation 98% 11/07/2023 7:55 AM SPEEDOMETER INSPECTOR Inhaled Oxygen Concentration - - Weight 134.7 kg (297 lb) 11/07/2023 7:55 AM SPEEDOMETER INSPECTOR Height 190.5 cm (6' 3 ) 11/07/2023 7:55 AM SPEEDOMETER INSPECTOR Body Mass Index 37.12 11/07/2023 7:55 AM SPEEDOMETER INSPECTOR Plan of Treatment Not on file Insurance [facility] [address] [id number] Care Teams Casing Mixer Relationship Specialty Start Date End Date Davis Lopez MD [address] [address] PCP - General Family Medicine 12/14/18
--- OUTSIDE RECORDS SUMMARY | 2024-11-04 06:45 | XMS_ITS | Clinical Summary ---
Author Organization [facility] [address] Address [address] [place] [address] Care Team Providers Care Computer Salesperson Retail Name Role Phone Davis Lopez MD Primary [...] each 11 1 Active BD Regular Bevel [place] 21 gauge x 1 1/2 needle Use [...] Refused),10/25/2022(Deferred: Patient Refused),10/25/2022(Deferred: Patient Refused),08/11/2021(Deferred: Patient Refused),07/25/2020 Surgical History Surgery Date Site/Laterality Comments LIPOMA RESECTION Back HEMORRHOID SURGERY Medical History Medical History Date Comments Sinusitis Low testosterone in male Chronic low back pain Allergic Anxiety Low testosterone in male Hyperlipidemia Mixed bipolar disorder (HCC) Arthritis Age 16 Family History Medical History Relation Name Comments Heart disease Father [place] Hypertension Father [place] Diabetes Maternal Grandfather Roberto Carlos Breast cancer Maternal Grandmother Christina Cancer Maternal Grandmother Christina Cancer Mother Blanca sullivan Heart disease Mother Blanca sullivan Obesity Mother Blanca sullivan Heart attack Paternal Grandmother Not sure and it grea t grandma Relation Name Status Comments Father [place] Alive Maternal Grandfather Roberto Carlos Maternal Grandmother Christina Mother Blanca sullivan Alive Paternal Grandmother Not sure and it great grandma Social History Tobacco Use Types Packs/Day Years [...] on file Legal Sex Male 7:15 PM SUPERVISOR QUILTING Gender Identity Male 02/02/2021 7:40 PM CDT Sexual Orientation Straight 02/02/2021 7: 40 PM CDT Obstetrics History Last Filed Vital Signs Vital Sign Reading Time Taken Comments Blood Pressure 120/72 11/07/2023 7:55 AM SUPERVISOR QUILTING Pulse 68 11/07/2023 7:55 AM SUPERVISOR QUILTING Temperature 36.7 C (98.1 F) 10/31/2021 3:06 PM SUPERVISOR QUILTING Respiratory Rate 18 11/07/2023 7:55 AM SUPERVISOR QUILTING Oxygen Saturation 98% 11/07/2023 7:55 AM SUPERVISOR QUILTING Inhaled Oxygen Concentration - - Weight 134.7 kg (297 lb) 11/07/2023 7:55 AM SUPERVISOR QUILTING Height 190.5 cm (6' 3 ) 11/07/2023 7:55 AM SUPERVISOR QUILTING Body Mass Index 37.12 11/07/2023 7:55 AM SUPERVISOR QUILTING Plan of Treatment Health Maintenance Due Date Last Done Comments Colon Cancer Screening-Colonoscopy 1979 Hepatitis C Screening 1979 Pneumococcal vaccine <65 (1 of 2 - PCV) 1985 DTaP/Tdap/Td Vaccine (1 - Tdap) 1990 Hepatitis B Screening 1997 Covid-19 Vaccine (3 - season) 2024 05/20/2021, 04/22/2021 Influenza Vaccine (#1) 2024 , 07/23/2019, 01/22/2018 Depression Screening 11/07/2024 11/07/2023, 10/25/2022, 04/11/2021, Additional history exists Regular Well Visit/Exam 18-64 11/07/2024 11/07/2023, 10/25/2022, 10/12/2021, Additional history exists HPV Vaccines Aged Out No longer eligi ble based on patient's age to complete this topic Insurance [place] [address] Care Teams Computer Salesperson Retail Relationship Specialty Start Date End Date Davis Lopez MD [address] [address] PCP - General Family Medicine 12/14/18
[2024-11-04 07:31] LABS: Hematocrit 51.7 % (42.0-52.0); Hemoglobin 17.2 g/dL (14.0-18.0); Mean Corpuscular HGB Conc 33.3 g/dl (32-36); Mean Corpuscular Hemoglobin 30.7 pg (26-34); Mean Corpuscular Volume 92.2 fl (80-100); Mean Platelet Volume 10.1 fl (7.4-10.4); Platelet Count Result 178 k/mm3 (150-375); Red Blood Count 5.61 M/mm3 (4.6-6.20); Red Cell Distribution Width 12.5 % (11.5-14.5); White Blood Count 6.5 K/mm3 (4.5-10.0)
[2024-11-04 07:49] LABS: Alanine Aminotransferase 26 U/L (6-50); Albumin Level 4.2 g/dL (3.5-5.1); Alkaline Phosphatase 51 U/L (38-126); Anion Gap 8 mmol/L (4-12); Aspartate Amino Transferase 25 U/L (17-59); Bilirubin,Total 1.6 mg/dL (0.2-1.3); Blood Urea Nitrogen 17 mg/dL (9-20); Calcium 9.2 mg/dL (8.4-10.2); Carbon Dioxide 28 mmol/L (22-30); Chloride 103 mmol/L (98-107); Cholesterol 192 mg/dL (0-200); Estimated Glomerular Filt Rate > 60; Glucose 106 mg/dL (65-110); HDL Direct 34 mg/dL; Potassium 4.3 mmol/L (3.4-5.0); Sodium 139 mmol/L (137-145); Triglycerides 183 mg/dL (<150)
[2024-11-04 08:00] LABS: LDL Cholesterol Direct 132 mg/dL
== END 2024-11-04 06:40 | disposition home or self-care (01) ==
DX: Z00.00 Encounter for general adult medical examination without abnormal findings (principal); E29.1 Testicular hypofunction
CPT/HCPCS: 36415; 80053; 80061; 84402; 84403; 85027

== ENCOUNTER 2024-12-08 15:44 | Emergency (ER) | payer OTHER, SELFPAY ==
--- NOTE | ~2024-12-08 | CT_ITS ---
CT brain wo con Ordering provider: Corinne Farah APRN History: 44 years Male with . vertigo, headache . Comparison: None. Technique: CT of the head without contrast. Radiation reduction technique utilized The dose-length product was 681 mGy-cm. FINDINGS: BRAIN PARENCHYMA AND CSF SPACES: No midline shift, mass effect or hemorrhage. The brain parenchyma a nd CSF spaces are otherwise normal. VISUALIZED PARANASAL SINUSES: Bilateral ethmoid sinus disease. Well aerated. MASTOIDS: Well aerated. BONES: The bones appear intact. SOFT TISSUES: Visualized nasopharynx is normal. Soft tissue density in the right frontal scalp may b e a hematoma. Superficial soft tissues are normal. IMPRESSION: No acute intracranial findings. Reviewed, dictated and finalized at location A.
[2024-12-08 16:09] VITALS: BP 146/77; PULSE 72; RESP 16; TEMP 36.6; O2SAT 98
--- NOTE | 2024-12-08 16:23 | ED_ITS ---
HPI - Dizziness General Chief Complaint: Dizziness Stated Complaint: vertigo Time Seen by Provider: 12/08/24 16:15 Focused HPI: Patient is a 44-year-old male who presents to the ER with complaints of vertigo and left hand numbness/tingling. He reports he had the flu last week. On Sunday he developed vertigo and left hand num bness/tingling, along with a headache. Patient denies any medical history. He denies any one-sided weakness, visual changes, chest pain, shortness of breath, recent fevers. GENERAL: Well-appearing, well-nourished, and in no acute distress. HEAD: Normocephalic, atraumatic. CHEST: Clear to auscultation. ?No respiratory distress. HEART: Regular rate and rhythm.? NEURO: ?Alert and oriented x3. Full range of motion in L hand. Patient screened in triage and initial orders placed.? ?Additional care and disposition to be based upon?diagnostic testing and treatment. Related Data Home Medications ?Medication ?Instructions ?Recorded ?Confirmed ?Last Taken ?Type hydrocodone 10 mg-acetaminophen 1 tablet PO DAILY 05/03/22 05/19/22 05/19/22 History 325 mg tablet montelukast 10 mg tablet 10 mg PO DAILY 05/03/22 05/19/22 Unknown History trazodone 50 mg tablet 50 mg PO DAILY 05/03/22 05/19/22 Unknown History testosterone cypionate 200 mg/mL 200 mg IM MONTHLY 05/11/22 05/19/22 Unknown History intramuscular oil Allergies Allergy/AdvReac Type Severity Reaction Status Date / Time No Known Allergies Allergy Verified 07/18/22 08:44 PMFSH Past Medical History Medical History Anal fissure Arthritis Asthma Chronic pain Colon polyps Epigastric pain Hematemesis Irritable bowel syndrome with diarrhea Nausea and vomiting Surgical History Surgical History H/O hemorrhoidectomy Social History Social History Social History: Patient endorses daily alcohol and tobacco use. Smoking packs per day: 1.5 Smoking cigarettes per day: 30.0 Years smoked: 35 Smoking pack-years: 52.50 Smoking status: Current every day smoker Tobacco type: cigarettes Alcohol intake: current Drinks per week: 10 Alcohol use details: BEER Substance use: never Substance use type: does not use Living arrangements: with family Spiritual care concerns: No Course Vital Signs Vital signs: Vital Signs Temperature 36.6 C 12/08/24 16:09 Pulse Rate 72 12/08/24 16:09 Respiratory Rate 16 12/08/24 16:09 Blood Pressure 146/77 H 12/08/24 16:09 Pulse Oximetry 98 12/08/24 16:09 Oxygen Delivery Room Air 12/08/24 16:09 Temperature 36.6 C 12/08/24 16:09 Pulse Rate 72 12/08/24 16:09 Respiratory Rate 16 12/08/24 16:09 Blood Pressure 146/77 H 12/08/24 16:09 Pulse Oximetry 98 12/08/24 16:09 Oxygen Delivery Room Air 12/08/24 16:09 Discharge Plan Discharge Clinical Impression: Benign paroxysmal positional vertigo Patient Disposition: Elopement After Seen by Prov Patient Language: Zimbabwean Prescriptions: No Action trazodone 50 mg tablet 50 mg PO DAILY hydrocodone-acetaminophen 10-325 mg tablet 1 tablet PO DAILY montelukast 10 mg tablet 10 mg PO DAILY testosterone cypionate 200 mg/mL oil 200 mg IM MONTHLY Follow-up/Referrals: PHYSICIAN NOT ON STAFF,NONSTAFF [Primary Care Provider] -
--- OUTSIDE RECORDS SUMMARY | 2024-12-08 18:22 | XMS_ITS | Clinical Summary ---
Author Organization [facility] [address] Address [address] [place] [address] Care Team Providers Care Hybrid Powertrain Development Engineer Name Role Phone Davis Lopez MD Primary [...] each 11 1 Active BD Regular Bevel [place] 21 gauge x 1 1/2 needle Use [...] DAYS DIRECTED 6 mL 3 4 Active methylPREDNISol one (MEDROL DOSEPACK) 4 mg Dosepack Take as directed on package. 21 tablet 5 025 Active Problems Problem Noted Date Diagnosed Date [...] AM CDT): BMI Follow-up includes: education provided. Encounters Date Type Department Care Team Description 12/08/2024 Nurse Triage [facility] [address] [address] [address] [place] [address] Davis Lopez MD 12/08/2024 Telephone [facility] [address] [address] [address] [place] [address] Davis Lopez MD Test Results 11/10/2024 8:00 AM CURRICULUM DEVELOPMENT SPECIALIST Office Visit [facility] [address] [phone] Davis Lopez MD Annual physical exam (Primary Dx); Mixed hyperlipidemia; Hypogonadism in male; Acute cough; Mixed bipolar disorder (HCC) 11/07/2024 Orders Only [facility] [address] [address] Davis Lopez MD from Last 3 Months Immunizations Immunization Administration Dates Next Due Influenza, Quadrivalent, Spl [...] Date Smoking Tobacco: Every Day Cigarettes 1.3 34.2 Started: 1990 Smokeless Tobacco: Never Tobacco Cessation:Ready to Q uit: Yes; Counseling Given: Yes Alcohol Use Standard Drinks/Week Comments Yes 0 (1 standard drink = 0.6 oz pur e alcohol) occasional, 2-3 times monthly AUDIT-C Answer Date Recorded Q1: How often do you have a drink containing alc ohol? 2-3 times a week 11/10/2024 Q2: How many drinks containi ng alcohol do you have on a typical day when you are drinking? 1 or 2 11/10/2024 Q3: How often do you have si x or more drinks on one occasion? Less than monthly 11/10/2024 PHQ-2 Answer Date Recorded PHQ-2 Total Score (If total score is 3 or more points, staff should administer the PHQ-9) 2 11/07/2023 Sex and Gender Information Value Date Recorded Sex Assigned at Not on file Legal Sex Male 7:15 PM CURRICULUM DEVELOPMENT SPECIALIST Gender Identity Male 02/02/2021 7:40 PM CDT Sexual Orientation Straight 02/02/2021 7: 40 PM CDT Obstetrics History Last Filed Vital Signs Vital Sign Reading Time Taken Comments Blood Pressure 124/72 11/10/2024 7:31 AM CURRICULUM DEVELOPMENT SPECIALIST Pulse 80 11/10/2024 7:31 AM CURRICULUM DEVELOPMENT SPECIALIST Temperature 36.8 C (98.3 F) 11/10/2024 7:31 AM CURRICULUM DEVELOPMENT SPECIALIST Respiratory Rate 18 11/10/2024 7:31 AM CURRICULUM DEVELOPMENT SPECIALIST Oxygen Saturation 97% 11/10/2024 7:31 AM CURRICULUM DEVELOPMENT SPECIALIST Inhaled Oxygen Concentration - - Weight 134.7 kg (297 lb) 11/07/2023 7:55 AM CURRICULUM DEVELOPMENT SPECIALIST Height 190.5 cm (6' 3 ) 11/10/2024 7:31 AM CURRICULUM DEVELOPMENT SPECIALIST Body Mass Index 37.12 11/07/2023 7:55 AM CURRICULUM DEVELOPMENT SPECIALIST Plan of Treatment Health Maintenance Due Date Last Done Comments Colon Cancer Screening-Colonoscopy 1979 Hepatitis C Screening 1979 DTaP/Tdap/Td Vaccine (1 - Tdap) 1990 Hepatitis B Screening 1997 Pneumococcal vaccine <65 (1 of 2 - PCV) 1998 Covid-19 Vaccine (3 - season) 2024 05/20/2021, 04/22/2021 Influenza Vaccine (#1) 2024 , 07/23/2019, 01/22/2018 Depression Screening 11/07/2024 11/07/2023, 10/25/2022, 04/11/2021, Additional history exists Regular Well Visit/Exam 18-64 11/10/2025 11/10/2024, 11/07/2023, 10/25/2022, Additional history exists HPV Vaccines Aged Out No longer eligi ble based on patient's age to complete this topic Procedures Procedure Name Priority Date/Time Associated Diagnosis Comments CBC WITH DIFFERENTIAL Routine 11/04/2024 COMPREHENSIVE METABOLIC PANEL Routine 11/04/2024 LIPID PANEL Routine 11/04/2024 from Last 3 Months Results * Lipid Panel (11/04/2024) [facility] Provider MD LAB BLOOD ORDERABLES Tena l Result EXTERNAL LAB * CBC with Differential (11/04/2024) [facility] Provider MD LAB BLOOD ORDERABLES Tena l Result EXTERNAL LAB * Comprehensive metabolic panel (11/04/2024) Blood [facility] Provider MD LAB BLOOD ORDERABLES Tena l Result EXTERNAL LAB from Last 3 Months Insurance [place] [id number] [place] [id number] Care Teams Hybrid Powertrain Development Engineer Relationship Specialty Start Date End Date Davis Lopez MD [address] [place] [address] PCP - General Family Medicine 12/14/18
--- OUTSIDE RECORDS SUMMARY | 2024-12-08 18:22 | XMS_ITS | Encounter Summary ---
Author Organization [facility] Healthcare Address [address] [place] [address] Care Team Providers Care Caustic Plant Worker Name Role Phone Davis Lopez MD Primary Care Provi shanika Reason for Visit * Reason Onset Date Comments Test Results 12/08/2024 Encounter Details Date Type Department Care Team (Late st Contact Info) Description 12/08/2024 Telephone [facility] Family Medicine [address] [place] [address] Davis Lopez MD [address] [place] [address] Test Results Social History Tobacco Use Types Packs/Day Years Used Date Smoking Tobacco: Every Day Cigarettes 1.3 34.2 Started: 1990 Smokeless Tobacco: Never Alcohol Use Standard Drinks/Week Comments Yes 0 [...] on file Legal Sex Male 7:15 PM SWEATBAND SEPARATOR Gender Identity Male 02/02/2021 7:40 PM CDT Sexual Orientation Straight 02/02/2021 7: 40 PM CDT documented as of this encounter Miscellaneous Notes * Telephone Encounter - Ghazala Hodges MA - 12/08/2024 1:26 PM CDT Records requested from [facility] * Telephone Encounter - Davis Lopez MD - 12/08/2024 12:54 PM CDT Testosterone levels are still not in the chart. Call the facility where he had them done and get the results please * Telephone Encounter - Davy Gao - 12/08/2024 11:24 AM CDT Test Result Request Type of test: Testosterone Date of test: [facility] result [facility]? No Additional Questions/Comments: Patient requesting call back regarding these results or the status of the results Does message need to be routed? Yes-Action Needed documented in this encounter Plan of Treatment Not on file documented as of this encounter Visit Diagnoses Not on filedocumented in this encounter Care Teams Caustic Plant Worker Relationship Specialty Start Date End Date Davis Lopez MD [address] [facility] [address] [address] PCP - General Family Medicine 12/14/18 documented as of this encounter
--- OUTSIDE RECORDS SUMMARY | 2024-12-08 18:22 | XMS_ITS | Encounter Summary ---
Author Organization [facility] Healthcare Address [address] [place] [address] Care Team Providers Care Plasma Processing Technician Name Role Phone Davis Lopez MD Primary Care Provi shanika Reason for Visit * Reason Onset Date Comments hand numbness 12/08/2024 Encounter Details Date Type Department Care Team (Late st Contact Info) Description 12/08/2024 Nurse Triage [facility] Family Medicine [address] [place] [address] Davis Lopez MD [address] [place] [address] Social History Tobacco Use Types Packs/Day Years [...] on file Legal Sex Male 7:15 PM REGISTRATION SPECIALIST Gender Identity Male 02/02/2021 7:40 PM CDT Sexual Orientation Straight 02/02/2021 7: 40 PM CDT documented as of this encounter Miscellaneous Notes * Telephone Encounter - Cherie Rankin RN - 12/08/2024 12:42 PM CDT Mr. Sullivan calls in today with reports of FLu last week. States L hand numbness and weakness that started Friay. States constantly numb, strenght is about 75% of baseline. Notes vertigo, mostly whenbending over and standing up. Has to hold on to something at times to keep from falling. Denies taking OTC mediations other than a couple of doses of Nyquil. Does not check BP at home. Encouraged Mr. Sullivan to call back with worsening sx. gastroenterology teacher recommends ED/UCC/Office with PCP approval. .Provider contacted via secure chat for ED disposition consult. Recommendation from provider:No response/sent to ED. Mr. Sullivan verbalizes understanding and agrees with plan of care. Routing as an FYI. Reason for Disposition Sudden onset of weakness of the face, arm or leg on one side of the body and present now (Exception: Oliva's palsy suspected: weakness on one side of the face developing over hours to days, with no other symptoms.) Sudden onset of numbness of the face, arm or leg on one side of the body and present now Protocols used: Neurologic [id number] * Telephone Encounter - Cherie Rankin RN - 12/08/2024 12:32 PM CDT Regarding: Numbness and tingling in left hand and vertigo ----- Message from Davy Awad sent at 12/08/2024 11:26 AM CDT ----- Symptom Based Call Chief Complaint(s): Numbness and tingling in left hand and vertigo Duration: Sunday What type of symptom(s) is the patient experiencing? Non-Emergent. Is this a new or reoccurring symptom(s)? New What have you tried to help your symptom(s)? Nothing Why was appointment not scheduled? Requesting advice from clinical steam tunnel feeder. Additional Comments: Patient had flu last week and his symptoms are mostly gone but now his hand isnumb constantly Does message need to be routed? Yes-Action Needed documented in this encounter Plan of Treatment Not on file documented as of this encounter Visit Diagnoses Not on filedocumented in this encounter Care Teams Plasma Processing Technician Relationship Specialty Start Date End Date Davis Lopez MD [address] [address] PCP - General Family Medicine 12/14/18 documented as of this encounter
--- OUTSIDE RECORDS SUMMARY | 2024-12-08 18:22 | XMS_ITS | Encounter Summary ---
Author Organization [facility] Facility Care Team Providers Care Regional Director Of Admissions Name Role Phone Davis Lopez MD Primary Care Provi shanika Encounter Details Date Type Department Care Team (Latest Contact Info) Description 02/28/2016 Orders Only [facility] ProviderAyse MD [address] [place] [address] Social History Tobacco Use Types Packs/Day Years Used Date Smoking Tobacco: Never Assessed Sex and Gender Information Value Date Recorded Sex Assigned at Not on file Legal Sex Male 7:15 PM CURATOR MEDICAL MUSEUM Gender Identity Male 02/02/2021 7:40 PM CDT [...] COVID: Suspected 10/06/2021 10/06/2021 10/16/2021 3:05 AM CURATOR MEDICAL MUSEUM documented as of this encounter Care Teams Regional Director Of Admissions Relationship Specialty Start Date End Date Davis Lopez MD [address] [place] [address] PCP - General Family Medicine 12/14/18 documented as of this encounter
--- OUTSIDE RECORDS SUMMARY | 2024-12-08 18:22 | XMS_ITS | Referral Summary ---
Author Organization [facility] [address] Address [address] [place] [address] Care Team Providers Care Fiction And Nonfiction Prose Writer Name Role Phone Davis Lopez MD Primary Care Provi shanika Encounters Date Type Department Care Team Description 12/08/2024 Nurse Triage [facility] [address] [facility] [address] [place] [phone] Davis Lopez MD 12/08/2024 Telephone [facility] [address] [facility] [address] [place] [address] Davis Lopez MD Test Results 11/10/2024 8:00 AM MATERIAL LISTER Office Visit [facility] [address] [facility] [address] [place] [phone] Davis Lopez MD Annual physical exam (Primary Dx); Mixed hyperlipidemia; Hypogonadism in male; Acute cough; Mixed bipolar disorder (HCC) 11/07/2024 Orders Only [facility] [address] [facility] [address] [place] [address] Davis Lopez MD from Last 3 Months Allergies No known active allergies Medications multivitamin [...] each 11 1 Active BD Regular Bevel [place] 21 gauge x 1 1/2 needle Use [...] CDT): BMI Follow-up includes: education provided. Immunizations Immunization Administration Dates Next Due Influenza, [...] on file Legal Sex Male 7:15 PM MATERIAL LISTER Gender Identity Male 02/02/2021 7:40 PM CDT Sexual Orientation Straight 02/02/2021 7: 40 PM CDT Last Filed Vital Signs Vital Sign Reading Time Taken Comments Blood Pressure 124/72 11/10/2024 7:31 AM MATERIAL LISTER Pulse 80 11/10/2024 7:31 AM MATERIAL LISTER Temperature 36.8 C (98.3 F) 11/10/2024 7:31 AM MATERIAL LISTER Respiratory Rate 18 11/10/2024 7:31 AM MATERIAL LISTER Oxygen Saturation 97% 11/10/2024 7:31 AM MATERIAL LISTER Inhaled Oxygen Concentration - - Weight 134.7 kg (297 lb) 11/07/2023 7:55 AM MATERIAL LISTER Height 190.5 cm (6' 3 ) 11/10/2024 7:31 AM MATERIAL LISTER Body Mass Index 37.12 11/07/2023 7:55 AM MATERIAL LISTER Plan of Treatment Not on file Procedures Procedure Name Priority Date/Time Associated Diagnosis Comments CBC WITH DIFFERENTIAL Routine 11/04/2024 COMPREHENSIVE METABOLIC PANEL Routine 11/04/2024 LIPID PANEL Routine 11/04/2024 from Last 3 Months Results * Lipid Panel (11/04/2024) [facility] Provider MD LAB BLOOD ORDERABLES Tena l Result Performing Organization Address City/[facility]/ZIP Co de Phone Number EXTERNAL LAB * CBC with Differential (11/04/2024) [facility] Provider MD LAB BLOOD ORDERABLES Tena l Result EXTERNAL LAB * Comprehensive metabolic panel (11/04/2024) Blood [facility] Provider MD LAB BLOOD ORDERABLES Tena l Result EXTERNAL LAB from Last 3 Months Insurance [place] [id number] [place] [id number] Care Teams Fiction And Nonfiction Prose Writer Relationship Specialty Start Date End Date Davis Lopez MD [address] [place] [address] PCP - General Family Medicine 12/14/18
--- OUTSIDE RECORDS SUMMARY | 2024-12-08 18:22 | XMS_ITS | Clinical Summary ---
Author Organization [facility] Address [facility] [place] [address] Care Team Providers Care Craniologist Name Role Phone Unavailable Primary Care Provider [...]
--- NOTE | 2024-12-08 21:40 | PC.NURSE ---
Pt approached triage desk at 2114 stating that he was leaving. He then ripped on his wristband and threw it on the counter prior to walking out.
--- OUTSIDE RECORDS SUMMARY | 2024-12-09 02:08 | XMS_ITS | Encounter Summary ---
Author Organization [facility] Facility Care Team Providers Care Guard Museum Name Role Phone Davis Lopez MD Primary Care Provi shanika Encounter Details Date Type Department Care Team (Latest Contact Info) Description 02/28/2016 Orders Only [facility] ProviderAyse MD [address] [place] [address] Social History Tobacco Use Types Packs/Day Years Used Date Smoking Tobacco: Never Assessed Sex and Gender Information Value Date Recorded Sex Assigned at Not on file Legal Sex Male 7:15 PM RECYCLING SPECIALIST Gender Identity Male 02/02/2021 7:40 PM [...] COVID: Suspected 10/06/2021 10/06/2021 10/16/2021 3:05 AM RECYCLING SPECIALIST documented as of this encounter Care Teams Guard Museum Relationship Specialty Start Date End Date Davis Loepz MD [address] [place] [address] PCP - General Family Medicine 12/14/18 documented as of this encounter
--- OUTSIDE RECORDS SUMMARY | 2024-12-09 02:08 | XMS_ITS | Encounter Summary ---
Author Organization [facility] Healthcare Address [address] [place] [address] Care Team Providers Care Thread Tool Grinder Set Up Operator Name Role Phone Davis Lopez MD Primary Care Provi shanika Reason for Visit * Reason Onset Date Comments hand numbness 12/08/2024 Encounter Details Date Type Department Care Team (Late st Contact Info) Description 12/08/2024 Nurse Triage [facility] Family Medicine [address] [place] [address] Davis Lopez MD [address] [place] [address] Social History Tobacco Use Types [...] on file Legal Sex Male 7:15 PM TAPE SEWER Gender Identity Male 02/02/2021 7:40 PM CDT [...] Sullivan to call back with worsening sx. printed circuit board pcb designer recommends ED/UCC/Office with PCP approval. .Provider contacted [...] body and present now Protocols used: Neurologic [id number] * Telephone Encounter - Cherie Rankin RN [...] appointment not scheduled? Requesting advice from clinical boarder steam. Additional Comments: Patient had flu last week and his symptoms are mostly gone but now his hand isnumb constantly Does message need to be routed? Yes-Action Needed documented in this encounter Plan of Treatment Not on file documented as of this encounter Visit Diagnoses Not on filedocumented in this encounter Care Teams Thread Tool Grinder Set Up Operator Relationship Specialty Start Date End Date Davis Lopez MD [address] [address] PCP - General Family Medicine 12/14/18 documented as of this encounter
--- OUTSIDE RECORDS SUMMARY | 2024-12-09 02:08 | XMS_ITS | Referral Summary ---
Author Organization [facility] [place] [address] Address [address] [place] [address] Care Team Providers Care Tutoring Manager Name Role Phone Davis Lopez MD Primary Care Provi shanika Encounters Date Type Department Care Team Description 12/08/2024 Nurse Triage [facility] Family [facility] [address] [facility] [address] [place] [phone] Davis Lopez MD 12/08/2024 Telephone [facility] [address] [facility] [address] [place] [address] Davis Lopez MD Test Results 11/10/2024 8:00 AM TOOL INSPECTOR Office Visit [facility] [address] [facility] [address] [place] [phone] Davis Lopez MD Annual physical exam (Primary Dx); Mixed hyperlipidemia; Hypogonadism in male; Acute cough; Mixed bipolar disorder (HCC) 11/07/2024 Orders Only [facility] [address] [facility] [address] [place] [address] Davis Lopez MD from Last [...] each 11 1 Active BD Regular Bevel [place] 21 gauge x 1 1/2 needle Use [...] on file Legal Sex Male 7:15 PM TOOL INSPECTOR Gender Identity Male 02/02/2021 7:40 PM CDT Sexual Orientation Straight 02/02/2021 7: 40 PM CDT Last Filed Vital Signs Vital Sign Reading Time Taken Comments Blood Pressure 124/72 11/10/2024 7:31 AM TOOL INSPECTOR Pulse 80 11/10/2024 7:31 AM TOOL INSPECTOR Temperature 36.8 C (98.3 F) 11/10/2024 7:31 AM TOOL INSPECTOR Respiratory Rate 18 11/10/2024 7:31 AM TOOL INSPECTOR Oxygen Saturation 97% 11/10/2024 7:31 AM TOOL INSPECTOR Inhaled Oxygen Concentration - - Weight 134.7 kg (297 lb) 11/07/2023 7:55 AM TOOL INSPECTOR Height 190.5 cm (6' 3 ) 11/10/2024 7:31 AM TOOL INSPECTOR Body Mass Index 37.12 11/07/2023 7:55 AM TOOL INSPECTOR Plan of Treatment Not on file Procedures Procedure Name Priority Date/Time Associated Diagnosis Comments CBC WITH DIFFERENTIAL Routine 11/04/2024 COMPREHENSIVE METABOLIC PANEL Routine 11/04/2024 LIPID PANEL Routine 11/04/2024 from Last 3 Months Results * Lipid Panel (11/04/2024) [facility] Provider MD LAB BLOOD ORDERABLES Tena l Result Performing Organization Address City/[facility]/ZIP Co de Phone Number EXTERNAL LAB * CBC with Differential (11/04/2024) [facility] Provider MD LAB BLOOD ORDERABLES Tena l Result EXTERNAL LAB * Comprehensive metabolic panel (11/04/2024) Blood [facility] Provider MD LAB BLOOD ORDERABLES Tena l Result EXTERNAL LAB from Last 3 Months Insurance [place] [id number] [place] [id number] Care Teams Tutoring Manager Relationship Specialty Start Date End Date Davis Lopez MD [address] [place] [address] PCP - General Family Medicine 12/14/18
--- OUTSIDE RECORDS SUMMARY | 2024-12-09 02:08 | XMS_ITS | Clinical Summary ---
Author Organization [facility] Address [facility] [place] [address] Care Team Providers Care Roll Machine Operator Name Role Phone Unavailable Primary Care Provider [...]
--- OUTSIDE RECORDS SUMMARY | 2024-12-09 02:08 | XMS_ITS | Encounter Summary ---
Author Organization [facility] Address [address] [place] [address] Care Team Providers Care Income Tax Expert Name Role Phone Davis Lopez MD Primary Care Provi shanika Reason for Visit * Reason Onset Date Comments Test Results 12/08/2024 Encounter Details Date Type Department Care Team (Late st Contact Info) Description 12/08/2024 Telephone [facility] Family Medicine [address] [place] [address] Davis Lopez MD [address] [place] [address] Test Results Social History Tobacco [...] on file Legal 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 Call the facility where he had them done and get the results please * Telephone Encounter - Davy Gao - 12/08/2024 11:24 AM CDT Test Result Request Type of test: Testosterone Date of test: 11[facility]? No Additional Questions/Comments: Patient requesting call back regarding these results or the status of the results Does message need to be routed? Yes-Action Needed documented in this encounter Plan of Treatment Not on file documented as of this encounter Visit Diagnoses Not on filedocumented in this encounter Care Teams Income Tax Expert Relationship Specialty Start Date End Date Davis Lopez MD [address] [facility] [address] [address] PCP - General Family Medicine 12/14/18 documented as of this encounter
--- OUTSIDE RECORDS SUMMARY | 2024-12-09 02:08 | XMS_ITS | Clinical Summary ---
Author Organization [facility] [place] [address] Address [address] [place] [address] Care Team Providers Care Interior Specialist Name Role Phone Davis Lopez MD Primary [...] each 11 1 Active BD Regular Bevel [place] 21 gauge x 1 1/2 needle Use [...] Department Care Team Description 12/08/2024 Nurse Triage [facility] Family Medicine [address] [facility] [address] [place] [phone] Davis Lopez MD 12/08/2024 Telephone [facility] Family Medicine [address] [facility] [address] [place] [address] Davis Lopez MD Test Results 11/10/2024 8:00 AM SOFTWARE CONFIGURATION SPECIALIST Office Visit [facility] [address] [phone] Davis Lopez MD Annual physical exam (Primary Dx); Mixed hyperlipidemia; Hypogonadism in male; Acute cough; Mixed bipolar disorder (HCC) 11/07/2024 Orders Only [facility] [address] [phone] Davis Lopez MD from Last 3 Months [...] on file Legal Sex Male 7:15 PM SOFTWARE CONFIGURATION SPECIALIST Gender Identity Male 02/02/2021 7:40 PM CDT Sexual Orientation Straight 02/02/2021 7: 40 PM CDT Obstetrics History Last Filed Vital Signs Vital Sign Reading Time Taken Comments Blood Pressure 124/72 11/10/2024 7:31 AM SOFTWARE CONFIGURATION SPECIALIST Pulse 80 11/10/2024 7:31 AM SOFTWARE CONFIGURATION SPECIALIST Temperature 36.8 C (98.3 F) 11/10/2024 7:31 AM SOFTWARE CONFIGURATION SPECIALIST Respiratory Rate 18 11/10/2024 7:31 AM SOFTWARE CONFIGURATION SPECIALIST Oxygen Saturation 97% 11/10/2024 7:31 AM SOFTWARE CONFIGURATION SPECIALIST Inhaled Oxygen Concentration - - Weight 134.7 kg (297 lb) 11/07/2023 7:55 AM SOFTWARE CONFIGURATION SPECIALIST Height 190.5 cm (6' 3 ) 11/10/2024 7:31 AM SOFTWARE CONFIGURATION SPECIALIST Body Mass Index 37.12 11/07/2023 7:55 AM SOFTWARE CONFIGURATION SPECIALIST Plan of Treatment Health Maintenance Due [...] 3 Months Results * Lipid Panel (11/04/2024) [facility] Provider MD LAB BLOOD ORDERABLES Tena l Result EXTERNAL LAB * CBC with Differential (11/04/2024) [facility] Provider MD LAB BLOOD ORDERABLES Tena l Result EXTERNAL LAB * Comprehensive metabolic panel (11/04/2024) Blood [facility] Provider MD LAB BLOOD ORDERABLES Tena l Result EXTERNAL LAB from Last 3 Months Insurance [place] [id number] [place] [id number] Care Teams Interior Specialist Relationship Specialty Start Date End Date Davis Lopez MD [address] [place] [address] PCP - General Family Medicine 12/14/18
== END 2024-12-08 20:41 | disposition left against medical advice (07) ==
LOC: ANHED 12-09 02:06
PROVIDERS: Emergency Provider Registered Nurse
DX: H81.10 Benign paroxysmal vertigo, unspecified ear (principal); J45.909 Unspecified asthma, uncomplicated; M19.90 Unspecified osteoarthritis, unspecified site; Z86.0100 Personal history of colon polyps, unspecified; K58.0 Irritable bowel syndrome with diarrhea; F17.210 Nicotine dependence, cigarettes, uncomplicated
CPT/HCPCS: 70450; 99284